=== PATIENT | female | born 1980 | race African-American/Black ===

== ENCOUNTER 2017-10-23 16:43 | Inpatient (IN) | payer MEDICAID ==
--- NOTE | 2017-10-23 16:45 | EDPHY ---
HPI/HX/ROS/PE/MDM Narrative: CHIEF COMPLAINT: Unresponsive HISTORY OF PRESENT ILLNESS: The patient is a 35 y/o female with a history of a CVA arriving emergently via EMS after being found unresponsive at an RTD station. She was found by security between the toilet and a wall with several empty bottles of alcohol next to her including 2 empty handles of vodka. It is unclear if she took drugs. It is also unclear how long she was down. While en route to the hospital she was unresponsive. EMS found the patient's glucose to be 198 and she was tachycardic. She did receive Narcan 0.5 mg with no change. Nasal trumpet was placed. Upon further review, patient has been seen at [facility] (10/14/17, 9 days ago) and [facility] (10/18/17, 5 days ago) for alcohol intoxication. Prior medical records reviewed including ED Visit at [facility] on 10/18/17. REVIEW OF SYSTEMS: Unable to obtain as patient is unresponsive. PAST MEDICAL HISTORY: Prior records demonstrate CVA with right-sided deficits, hypertension, hyperlipidemia. SOCIAL HISTORY: Resides in [place]. VITAL SIGNS: Reviewed by me. Patient has a nasal trumpet in place. She has a non-rebreather mask on. O2 sats are mid 90s. She has sonorous respirations. GENERAL: Smells of alcohol, unresponsive to pain stimuli. Moderately obese. HEENT: Atraumatic. Eyes: Right upper gaze preference. No icterus, no injection. Mouth: moist mucous membranes. No erythema or lesions. Neck: supple with no adenopathy. LUNGS: Coarse breath sounds with gurgling respirations, no wheezes, rhonchi or rales. CARDIAC: Regular rate and rhythm, no rubs, murmurs or gallops. ABDOMEN: Soft, obese, nondistended. EXTREMITIES: Cool to the touch. No trauma. No edema. NEURO: Unresponsive to painful stimuli. No response to verbal stimuli. Inconsistent withdrawal to pain of the left upper extremity. Patient is noted to not be moving her right side. SKIN: Warm and dry, no rash. Portions of this note were transcribed by a medical health researcher. I personally performed a history, physical exam, medical decision making, and confirmed accuracy of information the transcribed note. ED Course: The patient is a 36 y/o female with a history of significant alcohol intoxication and a CVA arriving emergently via EMS after being found unresponsive at an RTD station with several empty bottles of alcohol next to her. She did not respond to pain stimuli from the paramedics. On my exam she smells of alcohol and is unresponsive to pain stimuli including a sternal rub. She has coarse breath sounds and labored respirations. She has a rightward gaze preference and her extremities are cool to the touch. Decision made to intubate to protect the patient's airway. While suctioning her mouth prior to intubation, the patient had a purposeful movement of her left arm. Chest x-ray, head CT, EKG, and labs ordered. 1649: Procedure: Rapid sequence intubation. Indication for the procedure was airway protection. The patient was preoxygenated with 100% oxygen by face mask. The patient was given the following IV medications: 20mg IV and 125mg IV succinylcholine was given into the EJ IV. Patient had no sedation and no paralysis. IV line was checked and does not draw. I doubt that the patient actually received the medications. Patient had a peripheral IV placed and was given the following IV medications: 20mg IV Etomidate and 80mg IV rocuronium. The patient was orally endotracheally intubated under direct visualization with a 7.5 ETT. Tracheal intubation was confirmed with misting on the tube; breath sounds were auscultated equally bilaterally; appropriate color change with [place] End Tidal CO2 detector. Chest X-ray shows ETT in the right mainstem bronchus. This was repositioned. The procedure was performed by myself, Dr. Rosales. 1658: 12-LEAD EKG: Please see the full report in [facility]. My interpretation: Sinus tachycardia with a rate of 106. 1809: Patient's alcohol level is 630. Patient will be admitted for alcohol intoxication, altered mental status, and respiratory arrest. 181: Spoke with Dr. Harden, radiologist, regarding the patient's head CT. There are old right frontal, right occipital, and temporal infarcts. 1818: Consulted with hospitalist service, Dr. Molina accepts admission of this patient. 1839: Reassessed patient, she is currently under warming blankets as her temperature was 35.6 degrees, it is now 35.8 degrees. She is okay to go to the floor. MDM: Differential diagnoses for the patient's symptom complex was considered including but not limited to hypoglycemia, electrolyte disturbances, intracranial hemorrhage, tumor, drug or alcohol intoxication, stroke, or TIA. - Data Points Imaging Results: Imaging Impressions Chest X-Ray 10/23/17 17:00 Impression: 1. Endotracheal tube above the christine. 2. Patchy bilateral lower lobe atelectasis versus pneumonitis. Head CT 10/23/17 17:01 Impression: 1. Old bilateral frontal and right temporal lobe infarcts. 2. No acute hemorrhage, hydrocephalus or mass effect. 3. Recommend follow up MRI of the brain when the patient's medical condition permits. Findings and recommendations discussed with Emergency Department physician, Shanel Rosales MD, at 1813 hour, 10/23/2017. Final report concurs with initial preliminary interpretation. Imaging: Discussed imaging studies w/ rivet flunky Radiologist, I viewed and interpreted images myself Laboratory Results: Laboratory Results 10/23/17 16:54 10/23/17 16:54 10/23/17 10/23/17 10/23/17 17:39 16:54 16:54 WBC RBC Hgb Hct MCV MCH MCHC RDW Plt Count MPV Neut % (Auto) Lymph % (Auto) Valley % (Auto) Eos % (Auto) Baso % (Auto) Nucleat RBC Rel Count Absolute Neuts (auto) Absolute Lymphs (auto) Absolute Monos (auto) Absolute Eos (auto) Absolute Basos (auto) Absolute Nucleated RBC Immature Gran % Immature Gran # PT 11.5 SEC L SEC (12.0-15.0) INR 0.82 L (0.83-1.16) APTT 28.5 SEC SEC (23.0-38.0) Puncture Site RIGHT RADIAL Patient Temperature 35.6 DEGREES DEGREES pCO2 33 mmHg L mmHg (34-38) pO2 110 mmHg H mmHg (65-75) Total CO2 19 mEq/L L mEq/L (23-27) ABG pH 7.35 (7.35-7.45) ABG PO2/FiO2 Ratio 110 RATIO RATIO ABG HCO3 18 mEq/L L mEq/L (22-26) ABG O2 Saturation 97 % H % (92-95) ABG Base Excess -6.4 mEq/L L mEq/L (-2.5-2.5) O2 Concentration % 100 % % (0-100) Set Respiration Rate 12 SIMV YES Tidal Volume 600 End Tidal CO2 26 PEEP 5 Pressure Support 7 Sodium Potassium Chloride Carbon Dioxide Anion Gap BUN Creatinine Estimated GFR Glucose Calcium Creatine Kinase Troponin I Beta HCG, Qual NEGATIVE Ethyl Alcohol 10/23/17 10/23/17 16:54 16:54 WBC 8.37 10^3/uL 10^3/uL (3.80-9.50) RBC 4.54 10^6/uL 10^6/uL (4.18-5.33) Hgb 14.6 g/dL g/dL (12.6-16.3) Hct 43.9 % % (38.0-47.0) MCV 96.7 fL fL (81.5-99.8) MCH 32.2 pg pg (27.9-34.1) MCHC 33.3 g/dL g/dL (32.4-36.7) RDW 13.1 % % (11.5-15.2) Plt Count 264 10^3/uL 10^3/uL (150-400) MPV 9.0 fL fL (8.7-11.7) Neut % (Auto) 16.7 % L % (39.3-74.2) Lymph % (Auto) 71.8 % H % (15.0-45.0) Valley % (Auto) 9.6 % % (4.5-13.0) Eos % (Auto) 1.0 % % (0.6-7.6) Baso % (Auto) 0.5 % % (0.3-1.7) Nucleat RBC Rel Count 0.0 % % (0.0-0.2) Absolute Neuts (auto) 1.41 10^3/uL L 10^3/uL (1.70-6.50) Absolute Lymphs (auto) 6.01 10^3/uL H 10^3/uL (1.00-3.00) Absolute Monos (auto) 0.80 10^3/uL 10^3/uL (0.30-0.80) Absolute Eos (auto) 0.08 10^3/uL 10^3/uL (0.03-0.40) Absolute Basos (auto) 0.04 10^3/uL 10^3/uL (0.02-0.10) Absolute Nucleated RBC 0.00 10^3/uL 10^3/uL (0-0.01) Immature Gran % 0.4 % % (0.0-1.1) Immature Gran # 0.03 10^3/uL 10^3/uL (0.00-0.10) PT INR APTT Puncture Site Patient Temperature pCO2 pO2 Total CO2 ABG pH ABG PO2/FiO2 Ratio ABG HCO3 ABG O2 Saturation ABG Base Excess O2 Concentration % Set Respiration Rate SIMV Tidal Volume End Tidal CO2 PEEP Pressure Support Sodium 143 mEq/L mEq/L (135-145) Potassium 3.5 mEq/L mEq/L (3.5-5.2) Chloride 106 mEq/L mEq/L (97-110) Carbon Dioxide 15 mEq/l L mEq/l (22-31) Anion Gap 22 mEq/L H mEq/L (8-16) BUN 5 mg/dL L mg/dL (7-23) Creatinine 0.5 mg/dL L mg/dL (0.6-1.0) Estimated GFR > 60 Glucose 143 mg/dL H mg/dL (70-100) Calcium 8.9 mg/dL mg/dL (8.5-10.4) Creatine Kinase 112 IU/L IU/L (0-156) Troponin I < 0.012 ng/mL ng/mL (0.000-0.034) Beta HCG, Qual Ethyl Alcohol 630 mg/dL H* mg/dL (0-10) Medications Given: Sodium Chloride (Ns) 1,000 mls @ 125 mls/hr IV CONT JANETT Stop: 04/21/18 19:29 Last Admin: 10/23/17 21:33 Dose: 1,000 mls Propofol (Diprivan 10 Mg/Ml (Premix)) 100 mls @ 0 mls/hr IV CONT JANETT; Per Protocol PRN Reason: Protocol Stop: 04/21/18 19:29 Last Admin: 10/23/17 20:35 Dose: 100 mls Fentanyl/Sodium Chloride (Fentanyl 10 Mcg/Ml (Premix)) 100 mls @ 0 mls/hr IV CONT JANETT; Per Protocol PRN Reason: Protocol Stop: 11/02/17 20:28 Last Admin: 10/23/17 21:00 Dose: 100 mls Ondansetron HCl (Zofran) 4 mg IVP Q4HRS PRN PRN Reason: Nausea/Vomiting, Can't Take PO Stop: 04/21/18 19:21 Last Admin: 10/23/17 21:33 Dose: 4 mg Discontinued Medications Aspirin (Aspirin Rectal) 600 mg [place] ONCE ONE Stop: 10/23/17 19:26 Last Admin: 10/23/17 21:39 Dose: Not Given Aspirin (Aspirin) 325 mg TUBE ONCE ONE Stop: 10/23/17 21:31 Last Admin: 10/23/17 22:50 Dose: 325 mg Etomidate (Etomidate) 20 mg IVP EDNOW ONE Stop: 10/23/17 16:50 Last Admin: 10/23/17 16:49 Dose: 20 mg Etomidate (Etomidate) 20 mg IVP EDNOW ONE Stop: 10/23/17 17:35 Last Admin: 10/23/17 16:55 Dose: 20 mg Sodium Chloride (Ns) 1,000 mls @ 0 mls/hr IV ONCE ONE PRN Reason: Wide Open Stop: 10/23/17 17:35 Last Admin: 10/23/17 17:36 Dose: 1,000 mls Propofol (Diprivan 10 Mg/Ml (Premix)) 50 mls @ 0 mls/hr IV EDNOW ONE; As Directed PRN Reason: Protocol Stop: 10/23/17 18:02 Last Admin: 10/23/17 19:05 Dose: 50 mls Sodium Chloride (Ns) 1,000 mls @ 0 mls/hr IV ONCE ONE PRN Reason: Wide Open Stop: 10/23/17 18:42 Last Admin: 10/23/17 18:47 Dose: 1,000 mls Rocuronium [place] (Zemuron) 80 mg IVP EDNOW ONE Stop: 10/23/17 17:35 Last Admin: 10/23/17 16:55 Dose: 80 mg Succinylcholine Chloride (Quelicin) 125 mg IVP EDNOW ONE Stop: 10/23/17 16:50 Last Admin: 10/23/17 16:49 Dose: 125 mg General Initial Vital Signs: Initial Vital Signs Heart Rate 97 10/23/17 16:59 Respiratory Rate 20 10/23/17 16:59 Blood Pressure 112/82 H 10/23/17 16:59 O2 Sat (%) 92 10/23/17 16:59 O2 Delivery Mode Ventilator O2 (L/minute) 10 Allergies/Adverse Reactions: Unable to Assess Allergy (Unverified 10/23/17 19:22) Departure - Departure Disposition: [facility] Inpatient Acute Clinical Impression: Respiratory arrest Alcoholic intoxication Qualifiers: Complication of substance-induced condition: with unspecified complication Qualified Code(s): F10.929 - Alcohol use, unspecified with intoxication, unspecified Altered mental status Qualifiers: Altered mental status type: unspecified Qualified Code(s): R41.82 - Altered mental status, unspecified Condition: Serious Report Scribed for: Shanel Rosales Report Scribed by: Sarah Chamorro Date of Report: 10/23/17 Time of Report: 16:54
[2017-10-23] MEDS ORDERED: SUCCINYLCHOLINE CHLORIDE 200 MG/10 ML SYR IVP ONE (16:49)
[2017-10-23] MEDS ORDERED: ETOMIDATE 40 MG/20 ML INJ IVP ONE ×2 (16:49→17:34)
--- NOTE | 2017-10-23 17:05 | CPEKG ---
Heart Rate: 106 RR Interval: 566 P-R Interval: 164 QRSD Interval: 80 QT Interval: 368 QTC Interval: 489 P Casey: 43 QRS Casey: 63 T Wave Casey: 45 EKG Severity - BORDERLINE ECG - EKG Impression: SINUS TACHYCARDIA EKG Impression: BORDERLINE PROLONGED QT INTERVAL Electronically Signed By: Shanel Rosales 24-Oct-2017 10:15:44
[2017-10-23 17:08] LABS: PLATELET COUNT 264 10^3/uL (150-400)
[2017-10-23 17:13] LABS: CREATINE KINASE 112 IU/L (0-156)
[2017-10-23] MEDS ORDERED: PROPOFOL/EMULSION 500 MG/50 ML BOTTLE IV ONE (17:27)
[2017-10-23] MEDS ORDERED: NS 1,000 ML IV ONE ×2 (17:34→18:41)
[2017-10-23] MEDS ORDERED: ROCURONIUM 100 MG/10 ML VIAL IVP ONE (17:34)
[2017-10-23] MEDS: PROPOFOL/EMULSION 50 ML IV ONE ×4 (18:05→19:05)
[2017-10-23 18:34] LABS: INR 0.82 (0.83-1.16); PROTIME(PATIENT) 11.5 SEC (12.0-15.0)
[2017-10-23] MEDS ORDERED: KETAMINE 200 MG/20 ML VIAL ONE (18:46)
[2017-10-23] MEDS ORDERED: HYDROmorphONE/DILAUDID 1 MG/ML INJ IVP PRN (19:22)
[2017-10-23] MEDS ORDERED: ONDANSETRON DISINTEGRATING 4 MG TAB PO PRN (19:22)
[2017-10-23] MEDS ORDERED: ACETAMINOPHEN 325 MG TAB PO PRN (19:22)
[2017-10-23] MEDS ORDERED: ASPIRIN 600 MG PR ONE (19:25)
[2017-10-23] MEDS ORDERED: PROPOFOL/EMULSION 100 ML IV SCH (19:30)
[2017-10-23] MEDS ORDERED: NS 1,000 ML IV SCH (19:30)
--- NOTE | 2017-10-23 20:07 | GHP ---
[f rep st] HISTORY AND PHYSICAL DATE OF ADMISSION: 10/23/2017 HISTORY OF PRESENT ILLNESS: Patient is a 36-year-old female with no known past medical history, was found down on the bathroom at the bus station in [place]. She was unresponsive and brought to the emergency department where she was intubated. Patient was unable to provide much history, if any. The patient is noted to withdraw to pain on the left side but not the right. She is actively trying to pull the tube out with her left hand but not her right. She does not withdraw to pain on either side. Patient was seen 9 days ago at [facility] and 5 days ago at [facility]. Both of these were alcohol related complaints. It sounds like next to her there were 2 empty 1.75 L bottles of vodka. REVIEW OF SYSTEMS: Complete 10-point review of systems attempted but unable to be obtained given her obtundation. PAST MEDICAL HISTORY: Alcoholism. SOCIAL HISTORY: Drinks alcohol. MEDICATIONS: Unknown. ALLERGIES: Unable to assess. FAMILY HISTORY: Unknown. PHYSICAL EXAM: VITAL SIGNS: Temp 35.9, blood pressure 111/83, pulse 95, breathing 16 times a minute, 95% on room air. GENERAL: Intubated, sedated. HEENT: Sclerae injected, pupils are equal, round, reactive to light and accommodation. Mucous membranes are moist. LUNGS: Clear to auscultation anterolaterally. HEART: S1, S2. Tachycardic. ABDOMEN: Soft, obese, nontender, nondistended. LOWER EXTREMITIES: Without edema. SKIN: Without rash. She is moving her left arm only. She is not withdrawing to other painful stimuli. She is on propofol and is remarkably intoxicated. LABS: Alcohol level is 630. Drug screen is otherwise negative. White count 8.3, hematocrit 44, platelets 264,000, INR is 0.8. ABG shows a pH 7.35, pCO2 33 , PO2 110, sodium 143, potassium 3.5, chloride 106, BUN 25, creatinine 0.5, glucose 143, troponin less than 0.012. HCG is negative. UA is unremarkable. Drug screen is negative other than the very high alcohol level. I have discussed the case with Dr. Shanel Rosales of the emergency department. Chest x-ray, interpreted by me, shows no acute cardiopulmonary disease. She has cardiomegaly. She is intubated. The ET tube is above the christine. The EKG is notable for poor expiratory effort. EKG interpreted by me shows sinus tach at 106 with normal axis and intervals. No ST or T-wave changes. Head CT shows old frontal infarcts in the bilateral area as well as right temporal lobe infarcts. No acute hemorrhage, hydrocephalus or mass effect. ASSESSMENT/PLAN: A 36-year-old female, severe alcohol intoxication on respiratory failure. 1. Alcohol intoxication. I suspect this is etiology of her obtundation and need for intubation, will follow. 2. Respiratory failure. The patient is intubated largely for airway issues but notable also on her blood gas is a mild respiratory alkalosis which is not respiratory failure. Will follow. 3. Encephalopathy attributable to alcohol, negative drug screen, does not appear infected. 4. Alcoholism. For now, put the patient on propofol and follow. She is at low risk for withdrawal while her alcohol level is so high but she is certainly at risk going forward. I will write her to start Valium IV in the morning on a scheduled basis. 5. Stroke. The patient has multiple strokes of uncertain etiology. I will give her a rectal aspirin. She has an abnormal neuro exam as well. She is not a candidate for lytics for many reasons. Will do a rectal aspirin, will check a lipid panel in the morning. We will follow. Perhaps is more history that can be gained when she is more alert. 6. Prophylaxis. Pharmacologic prophylaxis indicated. DISPOSITION: ICU inpatient status. 35 minutes critical care. /[id number]/MODL MTDD
[2017-10-23] MEDS ORDERED: fentaNYL/NACL 100 ML IV SCH (20:29)
[2017-10-23] MEDS ORDERED: ASPIRIN 325 MG TAB TUBE ONE (21:30)
[2017-10-23] MEDS: ONDANSETRON 4 MG/2 ML VIAL IVP PRN (21:33)
[2017-10-24] MEDS: ONDANSETRON 4 MG/2 ML VIAL IVP PRN (01:40)
[2017-10-24 05:36] LABS: PLATELET COUNT 191 10^3/uL (150-400)
[2017-10-24] MEDS ORDERED: DIAZEPAM 5 MG/ML 1 ML SYR IVP PRN (07:30)
[2017-10-24] MEDS ORDERED: ENOXAPARIN 40 MG/0.4 ML SYR SC SCH (09:00)
--- NOTE | 2017-10-24 10:17 | PDMN ---
Medical Necessity Medical necessity: est los>2mn for etoh intoxication/ obtunded, encephalopathy attributed to etoh, resp failure, and stroke; admit to ICU, for propofol, intubation; hx several strokes; per order and H&P 10/23/17
--- NOTE | 2017-10-24 12:04 | ASMTCASEMG ---
Living Arrangements What is your living Answers: Alone arrangement? Who do you live with? Type Of Residence What kind of residence do Answers: House you live in? Discharge Plan Comments Coordination Status Comments Notes: Patient is a 36yo single female who was found down at the bus station in [place] with multiple empty bottles of alcohol around her including 2 empty handles of vodka. Toxicology showed bal of 630. Patient was negative for any other drugs. Patient had been treated at [facility] on 10-14-17 and at [facility] on 10-18-17 for alcohol intoxication. When patient is more clear will provide ETOH resources. Patient has a [place] address. CM will follow. Date Signed: 10/24/2017 12:04 PM Electronically Signed By:Lisa Cheung LCSW
[2017-10-24 12:47] VITALS: BP 94/56; PULSE 84; RESP 14; TEMP 98.8; O2SAT 94
--- NOTE | 2017-10-24 14:30 | GDS ---
[f rep st] DISCHARGE SUMMARY DIAGNOSES: 1. Acute respiratory failure due to inability to protect airway. 2. Acute severe alcohol intoxication. 3. History of alcohol abuse. 4. Acute encephalopathy due to alcohol intoxication. 5. History of stroke. HOSPITAL COURSE: A 36-year-old female who was found extremely intoxicated with a blood alcohol level of 630. She does not remember the incident. She was intubated for airway protection. She self-extubated overnight and has been doing fine on room air. When I am seeing her, she has eaten a full meal, is ambulating safely. She tells me that she has never had withdrawal before. She is more of a binge drinker than a chronic daily drinker, though she does have a few drinks every day. I think it is safe to discharge her. I have worked with our case management to get her a bed at [facility] as well as transportation there. She had old strokes seen on her CT head. She is on atorvastatin, I recommend that she start aspirin 81mg daily and follow up with a neurologist. She had no clear deficits. BILLING: I spent more than 30 minutes on the day of discharge coordinating care. /[id number]/MODL MTDD
[2017-10-25] MEDS ORDERED: ASPIRIN EC 81 MG TAB PO SCH (09:00)
[2017-10-25] MEDS ORDERED: ATORVASTATIN CALCIUM 40 MG TAB PO SCH (09:00)
== END 2017-10-24 17:17 | disposition home or self-care (01) | DRG 208 ==
LOC: OBSVTOIN 18:07 → F2N 19:36
PROVIDERS: ADMIT Internal Medicine; ATTEND Student in an Organized Health Care Education/Training Program
DX: J96.00 Acute respiratory failure, unspecified whether with hypoxia or hypercapnia (principal); F10.120 Alcohol abuse with intoxication, uncomplicated; I69.398 Other sequelae of cerebral infarction
CPT/HCPCS: 80305; 80307; 96365; G0480; J1650; J2405; J2704; J3010